=== PATIENT | male | born 1980 | race Two or more races ===

== ENCOUNTER 2024-11-07 14:26 | Emergency (ER) | payer MEDICAID, SELFPAY ==
--- NOTE | 2024-11-07 14:36 | EKG_ITS ---
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: : 1980 Requested By: Devin Taylor (CHARU) Order Number: [id number] Reading MD: Devin Taylor (FOOD TECHNOLOGY TEACHER) Measurements Intervals [place] Rate: 61 P: 125 MT: 157 QRS: -33 QRSD: 118 T: 120 QT: 348 QTc: 352 Interpretive Statements ELECTRONIC ATRIAL PACEMAKER LEFT AXIS DEVIATION [QRS AXIS < -30] PATTERN CONSISTENT WITH PULMONARY DISEASE MODERATE INTRAVENTRICULAR CONDUCTION DELAY [110+ ms QRS DURATION] VOLTAGE CRITERIA FOR LVH [MEETS CRITERIA IN ONE OF: R(aVL), S(V1), R(V5), R(V5/V6)+S(V1)] NONSPECIFIC T-WAVE ABNORMALITY No previous ECG available for comparison /store/S0/[id number].pdf
--- NOTE | 2024-11-07 14:54 | EDNOTE_ITS ---
ED SOB =RME/HPI General Chief Complaint: Chest Pain Stated Complaint: chest pain,trouble breathing x1 day, left arm pain Time Seen by Provider: 11/07/24 14:49 Arrival date/time: 11/07/24 14:26 RME / HPI RME / HPI Narrative: 44-year-old male patient with significant history of congestive heart failure hypertension, on Eliquis, had a pacemaker, came in for evaluation regarding chest pain and shortness of breath. Onset of symptoms for 1 day pain radiates to the left arm, described as dull ache. Patient is able to talk complete sentences with no pauses in between. Patient is not using any oxygen. Also complained of mild lower leg bilateral swelling. Denies any fever denies any sore throat. Related Data Allergies Allergy/AdvReac Type Severity Reaction Status Date / Time No Known Allergies Allergy Verified 11/07/24 14:28 Review of Systems Review of Systems Narrative Review of Systems: 44-year-old male patient with significant history of congestive heart failure hypertension, on Eliquis, had a pacemaker, came in for evaluation regarding chest pain and shortness of breath. Onset of symptoms for 1 day pain radiates to the left arm, described as dull ache. Patient is able to talk complete sentences with no pauses in between. Patient is not using any oxygen. Also complained of mild lower leg bilateral swelling. Denies any fever denies any sore throat. ED Exam Narrative Physical exam: VITAL SIGNS: Reviewed. GENERAL APPEARANCE: Alert and interactive, follows commands, no acute distress, HEAD AND FACE: Non-traumatic. ENT: PERRL, pink conjunctivitis, eyelid no trauma, Mucous membrane moist. NECK: Supple, nontender, no nuchal rigidity. CHEST: No tenderness, no crepitus, no paradoxical movement, no retractions. LUNGS: Clear, well ventilated, symmetric, no rales, no wheezing, no ronchi, no stridor, good breath sounds bilaterally. HEART: Regular rate, regular rhythm, no murmur, no gallops. ABDOMEN: Soft, positive bowel sounds, nondistended, no guarding, nontender, no rebound, no masses, RECTAL: Deferred. GENITAL: Deferred. NEUROLOGICAL: Gross motor function intact sensory function intact, Appropriate for age. MUSCULOSKELETAL: low back nontender, full range of motion. EXTREMITIES: Bilateral lower extremity edema +1, full range of motion. SKIN: Color pink, dry, no rash, no lacerations, no abrasions, no contusions. LYMPHATICS: Deferred. Course Quality Measures none Orders Category Date Time Status Bedside Influenza A&B Antigen Test NOW Care 11/07/24 14:54 Active EKG (ED ONLY) *Do not use* NOW Care 11/07/24 14:36 Completed EKG (ED Only) Stat Exams 11/07/24 14:36 Draft XR chest 2V Stat Exams 11/07/24 14:54 Completed B-Type Natriuretic Peptide Stat Lab 11/07/24 15:35 Completed CBC Stat Lab 11/07/24 15:35 Completed Comprehensive Metabolic Panel Stat Lab 11/07/24 15:35 Completed Drug Screen,Urine Stat Lab 11/07/24 15:32 Completed Magnesium Stat Lab 11/07/24 15:35 Completed Partial Thromboplastin Time Stat Lab 11/07/24 15:35 Completed Prothrombin Time with INR Stat Lab 11/07/24 15:35 Completed Troponin I Stat Lab 11/07/24 15:35 Completed Urinalysis Stat Lab 11/07/24 15:32 Completed Vital Signs Vital signs: Vital Signs Temperature 98.4 F 11/07/24 15:09 Pulse Rate 57 L 11/07/24 15:09 Respiratory Rate 18 11/07/24 15:09 Blood Pressure 130/77 11/07/24 15:09 Pulse Oximetry (%) 97 11/07/24 15:09 Oxygen Delivery Method Room Air 11/07/24 15:09 Shortness of Breath / Dyspnea MDM Narrative MDM Narrative:: 44-year-old male patient with significant history of congestive heart failure hypertension, on Eliquis, had a pacemaker, came in for evaluation regarding chest pain and shortness of breath. Onset of symptoms for 1 day pain radiates to the left arm, described as dull ache. Patient is able to talk complete sentences with no pauses in between. Patient is not using any oxygen. Also complained of mild lower leg bilateral swelling. Denies any fever denies any sore throat. Patient's cardiac workup all came back unremarkable chest x-ray showed moderate vascular congestion otherwise no pneumonia. Results discussed with the patient. Patient EKG showed paced rhythm, no ST segment elevation depression noted results discussed with the patient. Patient was noted to be ambulatory with no recurrence of shortness of breath or chest pain. Patient data External records reviewed:: None Clinical information provided by:: patient Social determinants that could affect healthcare access:: none Patient has the following chronic illnesses:: History of congestive heart failure, hypertension How is presenting disease/condition affected by chronic disease/condition?: exacerbated by Evaluation data The following diagnostics were reviewed and interpreted by me:: lab results, radiology exam(s) and EKG tracing(s) Lab and/or radiology exams considered but not ordered:: None Interpretation Summary: See results in MDM Medications / Prescriptions Medications or Prescriptions considered but not ordered:: None none none Medication administrations:: None Consultations Consultation(s) initiated? (list below): No Diagnosis Shortness of Breath Differential Diagnosis: acute exacerbation of chronic obstructive airways disease, congestive heart failure and community acquired pneumonia Most likely diagnosis given after review of the tests above:: Shortness of breath, history of congestive heart failure Admission Indicated Admission indicated?: not indicated Explain why admission is indicated or not indicated:: Stable Admission Request Was there a request for admission?: No Disposition Plan Disposition Plan: Discharge Discharge Attestation Discharge Attestation: The patient and all family members were given an opportunity to ask questions and understood the discharge instructions. Discharge instructions specifically effects, indications for sooner follow up or return to the emergency department, and the expected course of current diagnosis. Patient condition: Stable Discharge Plan Plan Patient Disposition: HOME (Self Care) Disposition Comment: Stable Prescriptions/Referrals Referrals: Rufino Goodson MD [Primary Care Provider] - In 1 week Problem List Clinical Impression: Shortness of breath, History of chronic CHF Patient/Caregiver Discharge Instructions Discharge Activity: activity as tolerated Education Materials: What Is Heart Failure Additional Instructions: Thank you for the opportunity for serving you today. You are stable for discharged . You are advised to: Follow-up with your PCP in 1 to 2 days Return to ED for worsening of symptoms Print Language: Tamazight Stand Alone Forms: Violeta Award Info., Patient Portal Info Letter HUNTER/AMBROCIO Supervising Physician TIA Supervising Physician: Dr Thompson
--- NOTE | 2024-11-07 14:54 | XR_ITS ---
Examination: PA lateral chest 2 views TECHNIQUE: Upright PA lateral chest 2 views Exam date and time: November 07, 2024 1519 hours INDICATIONS: Difficulty breathing today. FINDINGS: Mild prominence left ventricle Cardiac leads satisfactory position Moderate vascular congestion No lobar pneumonia Kyphosis dorsal spine IMPRESSION: Moderate vascular congestion No lobar pneumonia
--- NOTE | 2024-11-07 14:54 | PD.EDRME ---
Rapid Medical Screening Exam RME Arrival date/time: 11/07/24 14:26 44-year-old male with history of CHF presents emerged department complaint of shortness of breath and cough Chief Complaint: Chest Pain Time Seen by Provider: 11/07/24 14:49
[2024-11-07 15:09] VITALS: BP 130/77; PULSE 57; RESP 18; TEMP 36.9; O2SAT 97; BMI 35.4
[2024-11-07 15:39] LABS: Collection Type, Urine Clean Catch
[2024-11-07 15:51] LABS: Basophils % (Auto) 1 % (0-2.5); Eosinophils # (Auto) 0.2 Thou/mm3 (0.0-0.5); Eosinophils % (Auto) 3 % (0-10); Immature Granulocytes % (Auto) 0 % (0-0); Lymphocytes # (Auto) 2.6 Thou/mm3 (1.0-4.8); Mean Corpuscular Volume 94 fL (80-100); Monocytes % (Auto) 7 % (0-12); Neutrophils % (Auto) 57 % (37-80); Nucleated Red Blood Cell % 0 /100 WBC (0)
[2024-11-07 15:53] LABS: Hematocrit 42.3 % (41.0-53.0); Hemoglobin 13.7 g/dL (13.5-16.0); Immature Granulocytes Auto 0.01 Thou/mm3 (0.00-0.00); Lymphocytes % (Auto) 33 % (10-50); Mean Corpuscular HGB Conc 32.4 g/dl (31.0-37.0); Mean Corpuscular Hemoglobin 30.6 pg (25.0-35.0); Monocytes # (Auto) 0.5 Thou/mm3 (0.0-0.8); Neutrophils # (Auto) 4.4 Thou/mm3 (1.8-7.7); Platelet Count 129 Thou/mm3 (140-440); RDW Standard Deviation 46.7 fL (35.1-43.9); Red Blood Count 4.48 Miln/mm3 (4.50-5.90); White Blood Count 7.8 Thou/mm3 (3.8-10.6)
[2024-11-07 15:54] LABS: Bacteria,Urine Rare; Bilirubin,Urine Negative (Negative); Blood,Urine Trace (Negative); Clarity,Urine Clear (Clear/Hazy); Color,Urine Yellow (Lt Yel-Yel); Glucose, Urine Negative (Negative); Ketones,Urine Negative (Negative); Leukocyte Esterase,Urine Negative (Negative); Nitrite,Urine Negative (Negative); Protein,Urine Trace (Neg - Trace); RBC,Urine 5 /hpf (0-3); Squamous Epithelial Cell,Urine < 1 /hpf (0-5); WBC,Urine 2 /hpf (0-5)
[2024-11-07 16:02] LABS: Prothrombin Time 10.7 Seconds (9.0-12.2)
[2024-11-07 16:10] LABS: B-Type Natriuretic Peptide 63 pg/mL (0-100)
[2024-11-07 16:10] LABS: Amphetamine/Methamp Scrn,U Negative (Negative); Barbiturate Screen,Urine Negative (Negative); Benzodiazepines Screen,Urine Negative (Negative); Benzoylecgonine Screen, Ur Negative (Negative); Fentanyl Screen,Urine Negative (Negative); Opiate Screen,Urine Positive (Negative); THC Screen,Urine Positive (Negative)
[2024-11-07 16:16] LABS: Alanine Aminotransferase 21 U/L (10-49); Albumin, Serum 4.5 gm/dL (3.5-5.0); Albumin/Globulin Ratio 1.6 (1.2-2.2); Alkaline Phosphatase 74 U/L (46-116); Anion Gap 6 (7-16); Aspartate Amino Transferase 17 U/L (0-34); BUN/Creatinine Ratio 16 Ratio (12-20); Bilirubin,Total 0.5 mg/dL (0.3-1.2); Blood Urea Nitrogen 16 mg/dL (9-23); Calcium 9.5 mg/dL (8.3-10.6); Calcium (Corrected) 9.5 mg/dL (8.5-10.1); Carbon Dioxide 28.1 mMol/L (20.0-31.0); Chloride 107 mMol/L (98-107); Estimated Creatinine Clearance 130.3 mL/min (>60); Globulin 2.9 gm/dL (2.3-3.5); Glucose 101 mg/dL (74-106); Magnesium 1.6 mg/dL (1.6-2.6); Osmolality,Calculated 282 (275-295); Potassium 3.9 mMol/L (3.4-5.1); Sodium 141 mMol/L (136-145); Total Protein 7.4 gm/dL (5.7-8.2); Troponin I < 0.020 ng/mL (0.0-0.045); eGFR > 60 See Note
--- NOTE | 2024-11-07 19:00 | PC.NURSE ---
CALLED PATIENT IN LOBBY AND OUTSIDE, NO ANSWER RECEIVED.
== END 2024-11-07 18:59 | disposition home or self-care (01) ==
PROVIDERS: Nurse Practitioner Primary Care; Emergency Provider Emergency Medicine; PCP Family Medicine
DX: I11.0 Hypertensive heart disease with heart failure (principal); I50.9 Heart failure, unspecified; Z95.0 Presence of cardiac pacemaker
CPT/HCPCS: 36415; 71046; 80053; 80307; 81001; 83735; 83880; 84484; 85025; 85610; 85730; 93005; 99283

== ENCOUNTER 2025-02-07 13:05 | Outpatient (AMB) | payer MEDICAID, SELFPAY ==
[2025-02-07 13:21] VITALS: BP 108/70; PULSE 78; RESP 18; TEMP 36.2; O2SAT 96; BMI 33.5
--- NOTE | 2025-02-07 13:21 | XR_ITS ---
Examination: Bilateral hips, AP pelvis, 5 views Technique: AP, lateral views both hips, AP pelvis, 5 views Exam date and time: February 07, 2025 1338 hours INDICATIONS: Hip pain years. FINDINGS: Moderate to advanced bilateral hip osteoarthritis No fractures No avascular necrosis Bones the pelvis intact IMPRESSION: Moderate to advanced bilateral hip osteoarthritis
--- NOTE | 2025-02-07 13:21 | XR_ITS ---
Examination: Lumbar spine 3 views Technique one AP lateral coned lateral lower lumbar spine 3 views Exam date and time: February 07, 2025 1351 hours INDICATIONS: Lower back pain radiating down the right leg years FINDINGS: Satisfactory alignment lumbar vertebral bodies Transitional L5 vertebral body Advanced disc narrowing L4-L5 No lumbar fracture Mild lumbar spondylosis IMPRESSION: Advanced degenerative disc disease L4-L5 taking into account transitional L5 vertebral body Moderate to advanced bilateral hip osteoarthritis
--- NOTE | 2025-02-07 13:21 | ORTHONT_ITS ---
Vital signs 02/07/25 13:21 Height 1.85 m Height Method Stated Weight 114.56 kg Weight Measurement Method Standing Scale BMI 33.5 BP 108/70 Blood Pressure Source Automatic Cuff Blood Pressure Location Left Upper Arm Position Sitting Respiration 18 Pulse 78 Pulse Source Monitor Temp 97.1 F Temp Source Temporal Artery Scan Pulse Oximetry (%) 96 Oxygen Delivery Method Room Air Med/Allergies Allergies & Medications Allergies No Known Allergies Allergy (Verified 02/07/25 13:21) Medication Reconciliation apixaban 5 mg tablet (Eliquis) 5 mg PO BID 02/07/25 [History Confirmed 02/07/25] ibuprofen 200 mg tablet 200 mg PO Q6H PRN 02/07/25 [History Confirmed 02/07/25] losartan 25 mg tablet 25 mg PO QDAY 02/07/25 [History Confirmed 02/07/25] Exam Exam Patient is in no acute distress and is cooperative with the examination today. Breathing is nonlabored. In no respiratory distress. Patient has no paraspinal tenderness. Spinal deformity cannot be appreciated. The gait of the patient is nonantalgic Bilateral extremities were evaluated and demonstrates sensation intact to light touch. Palpable pedal pulses are present. No significant edema is present. Bilateral knees were examined and the patient has full strength and range of motion.. The right hip was examined. Patient was able to flex to 90 degrees, adduct to 30 degrees, abduct to 40 degrees, internally rotate to 20 degrees, and externally rotate to 20 degrees. Patient has a negative logroll. Stinchfield is negative. The patient is nontender diffusely to touch. The left hip was examined. Patient was able to flex to 90 degrees, adduct to 30 degrees, abduct to 40 degrees, internally rotate to 20 degrees, and externally rotate to 20 degrees. Patient has a Positive logroll. The stinchfield is negative. X-rays Are not able to review as I only have a report Assessment and Plan Problem List (1) Lumbar radiculopathy: Status: Acute (2) Bilateral hip joint arthritis: Status: Acute Plan: Niels is a 44-year-old male with pain that is in the back and radiates down both legs. He has pain in the buttocks and significant pain in his left knee where he had prior surgery. I do not have any x-rays to review. We will get x-rays and go from there. 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 Level 4 ([id number]) MA Intake Visit Data Collection New Patient or Established: New Patient (never been to [facility]) Reason for Visit:: BILATERAL HIP PAIN Seen by Clinical Staff ONLY (RN/MA): No PCP or OBGYN visit in last 3 months: Yes Hx Now: No Do You Feel Safe at Home: Yes Authorities Contacted: N/A Questionairres Past Medical History Past Medical History Have you ever been diagnosed with any of the following: Respiratory Problems Smoking: Yes (MARIJUANA) Smoking Exposure: Yes Subjective Visit Visit for: new patient and hip (BILATERAL) Immunization / Flu Flu Vaccine in the Last 12 Months: No Flu Vaccine Exclusion Criteria: Refused by Patient History of Present Illness Chief complaint: Bilateral lower extremity pain Patient is a pleasant 44-year-old male with bilateral leg pain and back pain. This been ongoing for years. He had a prior knee fracture and reports numbness and tingling. He has a pacemaker and sees a pain management doctor. He is asking for [place] today. He has pain primarily in his buttocks that radiates all the way down his left leg and right leg. The pain is worse on the left. He does have significant back pain as well Personal History Red flag PMH: smoker Pain Pain level (0-10): 8 Pain duration: ALL DAY Pain location: groin, inside (medial), outside (lateral), anterior, posterior and other (specify) (BACK) Pain quality: sharp, dull and aching Pain timing: night, increases with activity and stairs Associated signs & symptoms: weakness Ambulatory data Ambulatory device: none Treatments Improvement with previous injections: No Improvement with PT: No Improvement with NSAIDS: no Review of Systems Review of Systems: All systems negative unless otherwise noted in HPI.
--- NOTE | 2025-02-07 13:22 | XR_ITS ---
Examination: Bilateral knees single view Standing PA flexion, standing lateral, axial left knee 3 views TECHNIQUE: Bilateral AP knees standing single view Standing PA flexion, standing lateral, axial left knee 3 views total 4 views Exam date and time: February 07, 2025 1339 hours INDICATIONS: Left knee pain post injury 4 years ago. FINDINGS: Partial visualization healed fractures tibial and fibular shafts Moderate narrowing medial joint spaces bilaterally Mild osteoarthritis left patellofemoral joint IMPRESSION: Moderate narrowing medial joint spaces bilaterally
== END 2025-02-07 13:29 | disposition home or self-care (01) ==
LOC: HODSRG 13:05
PROVIDERS: PCP Family Medicine; Referring Provider Family Medicine; Supervising Provider Orthopaedic Surgery Adult Reconstructive Orthopaedic Surgery; Visit Provider Orthopaedic Surgery Adult Reconstructive Orthopaedic Surgery
DX: M54.16 Radiculopathy, lumbar region (principal); M13.852 Other specified arthritis, left hip; M13.851 Other specified arthritis, right hip; M25.562 Pain in left knee; Z95.0 Presence of cardiac pacemaker
CPT/HCPCS: 72100; 73522; 73564; 99204; G0463

== ENCOUNTER → 2025-04-04 | Outpatient (CLI) | payer MEDICAID, SELFPAY ==
[2025-04-04 14:51] LABS: Misc Send Out* See Sep Rpt
[2025-04-04 15:25] LABS: Collection Type, Urine Clean Catch
[2025-04-04 15:52] LABS: Bacteria,Urine Rare; Bilirubin,Urine Negative (Negative); Blood,Urine Negative (Negative); Clarity,Urine Clear (Clear/Hazy); Color,Urine Yellow (Lt Yel-Yel); Glucose, Urine Negative (Negative); Ketones,Urine Negative (Negative); Leukocyte Esterase,Urine Positive (Negative); Nitrite,Urine Negative (Negative); Protein,Urine Trace (Neg - Trace); RBC,Urine < 1 /hpf (0-3); Specific Gravity,Urine 1.031 (1.001-1.035); Squamous Epithelial Cell,Urine 1 /hpf (0-5); WBC,Urine 22 /hpf (0-5)
[2025-04-04 15:57] LABS: Alanine Aminotransferase 14 U/L (10-49); Albumin, Serum 4.5 gm/dL (3.5-5.0); Albumin/Globulin Ratio 1.8 (1.2-2.2); Alkaline Phosphatase 70 U/L (46-116); Anion Gap 5 (7-16); Aspartate Amino Transferase 15 U/L (0-34); BUN/Creatinine Ratio 15 Ratio (12-20); Bilirubin,Total 0.6 mg/dL (0.3-1.2); Blood Urea Nitrogen 15 mg/dL (9-23); Calcium 9.2 mg/dL (8.3-10.6); Calcium (Corrected) 9.2 mg/dL (8.5-10.1); Carbon Dioxide 29.6 mMol/L (20.0-31.0); Cardiac Risk Estimate 3.6 RATIO (4.0-6.7); Chloride 108 mMol/L (98-107); Cholesterol 144 mg/dL (132-200); Globulin 2.5 gm/dL (2.3-3.5); Glucose 85 mg/dL (74-106); HDL Cholesterol 40 mg/dL (40-60); LDL Cholesterol,Calculated 88 mg/dL (0-130); Osmolality,Calculated 284 (275-295); Potassium 3.8 mMol/L (3.4-5.1); Sodium 143 mMol/L (136-145); Thyroid Stimulating Hormone 0.69 uIU/mL (0.55-4.78); Triglycerides 78 mg/dL (30-150); eGFR > 60 See Note
[2025-04-04 16:07] LABS: Culture Indicated,Urine Yes
[2025-04-04 16:15] LABS: Microalbumin, Random Urine 7 mg/L (0-300)
[2025-04-04 16:20] LABS: Creatinine MALB Rnd Ur 306 mg/dL (30-125); Microalbumin Creat Ratio 2 mg/gCrea (<30)
[2025-04-04 17:38] LABS: Hepatitis A Antibody IgM Non Reactive (Non React); Hepatitis B Core Antibody IgM Non Reactive (Non React); Hepatitis B Surface Ab Reactive (Immune) (Immune); Hepatitis B Surface Antigen Non Reactive (Non React); Hepatitis C Antibody Non Reactive (Non React); Vitamin D 25 Hydroxy Total 25.4 ng/mL (7.3-40.2)
== END | disposition home or self-care (01) ==
DX: Z00.00 Encounter for general adult medical examination without abnormal findings (principal); R80.9 Proteinuria, unspecified; Z11.4 Encounter for screening for human immunodeficiency virus [HIV]; Z11.59 Encounter for screening for other viral diseases; Z79.899 Other long term (current) drug therapy
CPT/HCPCS: 36415; 80053; 80061; 80074; 81001; 82043; 82306; 82570; 84443; 86706; 87086; 87389

== ENCOUNTER 2025-04-23 09:05 | Outpatient (AMB) | payer MEDICAID, SELFPAY ==
--- NOTE | 2025-04-23 09:28 | PD.ORTHCLVIS ---
Vital signs 04/23/25 09:29 Height 1.85 m Height Method Stated Weight 114.05 kg Weight Measurement Method Standing Scale BMI 33.3 BP 119/77 Blood Pressure Source Automatic Cuff Blood Pressure Location Left Upper Arm Position Sitting Respiration 18 Pulse 63 Pulse Source Monitor Temp 98.1 F Temp Source Temporal Artery Scan Pulse Oximetry (%) 97 Oxygen Delivery Method Room Air Med/Allergies Allergies & Medications Allergies No Known Allergies Allergy (Verified 04/23/25 09:29) Medication Reconciliation apixaban 5 mg tablet (Eliquis) 5 mg PO BID 02/07/25 [History Confirmed 04/23/25] ibuprofen 200 mg tablet 200 mg PO Q6H PRN 02/07/25 [History Confirmed 04/23/25] losartan 25 mg tablet 25 mg PO QDAY 02/07/25 [History Confirmed 04/23/25] Exam Exam Patient is in no acute distress and is cooperative with the examination today. Breathing is nonlabored. In no respiratory distress. Patient has no paraspinal tenderness. Spinal deformity cannot be appreciated. The gait of the patient is nonantalgic Bilateral extremities were evaluated and demonstrates sensation intact to light touch. Palpable pedal pulses are present. No significant edema is present. Bilateral knees were examined and the patient has full strength and range of motion.. The right hip was examined. Patient was able to flex to 90 degrees, adduct to 30 degrees, abduct to 40 degrees, internally rotate to 20 degrees, and externally rotate to 20 degrees. Patient has a negative logroll. Stinchfield is negative. The patient is nontender diffusely to touch. The left hip was examined. Patient was able to flex to 90 degrees, adduct to 30 degrees, abduct to 40 degrees, internally rotate to 20 degrees, and externally rotate to 20 degrees. Patient has a Positive logroll. The stinchfield is negative. We reviewed his spine hip and knee films. He does have significant generative generation of his spine. As far as his hips he has bilateral hip arthritis of moderate severity Assessment and Plan Problem List (1) Lumbar radiculopathy: Status: Acute (2) Bilateral hip joint arthritis: Status: Acute Plan: Niels is a 44-year-old male with pain that is in the back and radiates down both legs. He has pain in the buttocks and significant pain in his left knee where he had prior surgery. We are fairly certain that the back is the main source of his pain. He is seeing a pain management doctor. He has pain that radiates down his legs and there is associated numbness and tingling. He has minimal groin pain but does have bilateral hip arthritis. We will continue to treat him nonoperatively for his hips at this time. We can try a cortisone injection should he have more pain in his groin but the pain is primarily localized to the back Office Procedures GNS Level of Care Nursing/Assessment Patient Status: Established Patient Nursing Assessment/Reassesment: Medication Reconciliation, Update PMH in EMR and Vital Signs Coordination of Care: Complex Care and Chronic Disease 1-5, Education Complex Pt/Fam, Consent,records obtained, informed consent, Results/Orders obtained and Staff clarify orders Established Patient Charge Established Patient Point Assignment: 95 Established Patient Point Charge: EP Level 3 (80-115) MA Intake Visit Data Collection New Patient or Established: Established Patient (seen at [facility] within 3 years) Reason for Visit:: XRAY RESULTS Seen by Clinical Staff ONLY (RN/MA): No PCP or OBGYN visit in last 3 months: Yes Hx Now: No Do You Feel Safe at Home: Yes Authorities Contacted: N/A Questionairres Past Medical History Past Medical History Have you ever been diagnosed with any of the following: Neurological Problems Cerebrovascular Accident (CVA): No Transient Ischemic Attacks (TIA): No Dementia: No Alzheimer's Disease: No Parkinson's Disease: No Brain Tumor: No Meningitis: No Seizures: No Epilepsy: No Multiple Sclerosis: No Cerebral Palsy: No Amyotrophic Lateral Sclerosis (ALS/Tiffany Gehrig's): No Guillain-Rosebush Syndrome: No Spina Bifida: No Paralysis: No Peripheral Neuropathy: No Bonilla's Palsy: No Subdural Hematoma: No Migraine: No Head Trauma: No Spinal Cord Injury: No Traumatic Brain Injury: No Cardiology Problems Myocardial Infarction: No Atrial Fibrillation: No Angina: No Heart Murmur: No Coronary Artery Disease: No Atherosclerotic Heart Disease: No Peripheral Vascular Disease: No Hypercholesterolemia: No Aneurysm: No Congestive Heart Failure: No Congenital Heart Disease: No Valvular Heart Disease: No Rheumatic Fever: No Cardiomyopathy: No Edema: No Pericarditis: No Cellulitis: No Deep Vein Thrombosis: No Hypertension: No Hypotension: No Varicose Veins: No Respiratory Problems Chronic Obstructive Pulmonary Disease (COPD): No Asthma: No Bronchitis: No Emphysema: No Pneumonia: No Pulmonary Fibrosis: No Tuberculosis: No Pulmonary Embolism: No Pulmonary Edema: No Sleep Apnea: No CPAP Dependent: No Respiratory Aspiration: No Dyspnea: No Orthopnea: No Hx Cough: No Cough: No Wheezing: No Chest Deformities: No Smoking: Yes (MARIJUANA) Smoking Cessation Counseling: No Smoking Exposure: Yes Tobacco Use: No Clubbing: No Exposure to Respiratory Irritants: No Intubation: No Stomache/Intestinal Problems Liver Cancer: No Hepatitis: No Cirrhosis: No Pancreatic Cancer: No Pancreatitis: No Celiac Disease: No Gall Bladder Disease: No Gastrointestinal Bleed: No Esophageal Varices: No Limon's Esophagus: No Colitis: No Ulcerative Colitis: No Diverticulitis: No Diverticulosis: No Ulcer: No Colorectal Cancer: No Irritable Bowel: No Crohn's Disease: No Obstructive Bowel: No Hiatal Hernia: No Hemorrhoids: No Gastroesophageal Reflux Disease: No Polyps: No Obesity: No Genital/Urinary Problems Chronic Kidney Disease: No Renal Disease: No Kidney Stones: No Polycystic Kidney Disease: No Neurogenic Bladder: No Inguinal Hernia: No Dialysis: No Prostate Cancer: No Benign Prostatic Hyperplasia: No Reproductive Problems Breast Cancer: No Fibroids: No Genital Herpes: No Gonorrhea: No Syphilis: No Testicular Cancer: No Musculoskeletal Problems Muscular Dystrophy: No Myasthenia Gravis: No Marfan's Syndrome: No Bone Cancer: No Arthritis: No Rheumatoid Arthritis: No Osteoporosis: No Degenerative Disk Disease: No Head,Eye,Nose,Throat Problems Cataracts: No Glaucoma: No Blind: No Retinal Detachment: No Macular Degeneration: No Chronic Ear Infections: No Deafness: No Eye Prosthesis: No Endocrine Problems Diabetes Mellitus Type 1: No Diabetes Mellitus Type 2: No Hypoglycemia: No Rose Bud's Syndrome: No Phoenix's Disease: No Hyperthyroidism: No Hypothyroidism: No Thyroid Cancer: No Parathyroid Disease: No Pituitary Disease: No Systemic Lupus Erythematosus: No Syndrome of Inappropriate Antidiuretic Hormone: No Adrenal Disease: No Graves' Disease: No Blood Problems Anemia: No Leukemia: No Hemophilia: No Thalassemia: No Sickle Cell Disease: No Clotting Problems: No Psychologic Problems Schizophrenia: No Recreational Drug Use: No Bipolar Disorder: No Depression: No Anxiety: No Behavior Problems: No Self-Mutilation: No Attention Deficit Disorder: No Attention Deficit Hyperactivity Disorder: No Depression: No Post Traumatic Stress Disorder: No Eating Disorder: No Other Problems Hospitalization: No Autoimmune Disease: No Down Syndrome: No Autism: No Developmental Delay: No Cosmetic Surgery: No Shingles: No Falls: No Blood Transfusions: No Blood Transfusion Reaction: No Anesthesia Reactions: No Organ Transplant: No Chemotherapy: No Radiation Therapy: No Hyperbaric Therapy: No MRSA: No VRSA: No Vancomycin-Resistant Enterococci: No Human Immunodeficiency Virus (HIV): No Chicken Pox: No Measles: No Mumps: No Rubella (Azeri Measles): No Pertussis: No Klebsiella Pneumoniae Carbapenemase Producing Bacteria: No Clostridium Difficile: No Hepatitis A: No Hepatitis B: No Hepatitis C: No Communicable Disease: No Cancer: No Lung Cancer: No Surgical History Pacemaker: Yes Subjective Visit Visit for: follow up visit, hip (BILATERAL) and x-rays (RESULTS) Immunization / Flu Flu Vaccine in the Last 12 Months: No Flu Vaccine Exclusion Criteria: Refused by Patient History of Present Illness Chief complaint: Bilateral lower extremity pain Patient is a pleasant 44-year-old male with bilateral leg pain and back pain. This been ongoing for years. He had a prior knee fracture and reports numbness and tingling. He has a pacemaker and sees a pain management doctor. He is asking for [place] today. He has pain primarily in his buttocks that radiates all the way down his left leg and right leg. The pain is worse on the left. He does have significant back pain as well He reports he cannot get an MRI because of his pacemaker. He reports he has very little pain in his groin Personal History Red flag PMH: smoker Pain Pain level (0-10): 8 Pain duration: ALL DAY Pain location: groin, inside (medial), outside (lateral), anterior, posterior and other (specify) (BACK) Pain quality: sharp, dull and aching Pain timing: night, increases with activity and stairs Associated signs & symptoms: weakness Ambulatory data Ambulatory device: none Treatments Improvement with previous injections: No Improvement with PT: No Improvement with NSAIDS: no Review of Systems Review of Systems: All systems negative unless otherwise noted in HPI.
[2025-04-23 09:29] VITALS: BP 119/77; PULSE 63; RESP 18; TEMP 36.7; O2SAT 97; BMI 33.3
== END 2025-04-23 09:43 | disposition home or self-care (01) ==
PROVIDERS: PCP Family Medicine; Referring Provider Family Medicine; Supervising Provider Orthopaedic Surgery Adult Reconstructive Orthopaedic Surgery; Visit Provider Orthopaedic Surgery Adult Reconstructive Orthopaedic Surgery
DX: M54.16 Radiculopathy, lumbar region (principal); M16.0 Bilateral primary osteoarthritis of hip; M25.562 Pain in left knee; Z95.0 Presence of cardiac pacemaker
CPT/HCPCS: 99213; G0463